=== PATIENT | male | born 1990 | race Caucasian/White ===

== ENCOUNTER 2016-10-06 08:59 | Emergency (ER) | payer OTHER ==
[2016-10-06 09:04] VITALS: RESP 18
[2016-10-06] MEDS ORDERED: IBUPROFEN 600 MG TAB PO ONE (09:22)
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
[2016-10-06 10:46] VITALS: BP 145/87; PULSE 72; TEMP 98.4; O2SAT 93
== END 2016-10-06 10:46 | disposition home or self-care (01) ==
DX: R07.89 Other chest pain (principal); M79.602 Pain in left arm